=== PATIENT | female | born 1990 | race Hispanic/Latino ===

== ENCOUNTER 2020-12-17 05:29 | Inpatient (IN) | payer MEDICAID ==
[~2020-12-17] VITALS: Ht 167.6 cm; Wt 69.9 kg
[2020-12-17] MEDS ORDERED: LACTATED RINGERS 1000ML 1,000 ML IV ONE (05:55)
[2020-12-17] MEDS ORDERED: OXYTOCIN-LR 20 UNITS/1000 ML 1,000 ML IV ONE (06:09)
[2020-12-17] MEDS ORDERED: LIDOCAINE HCL 1% 20 ML VIAL ONE (06:10)
[2020-12-17] MEDS ORDERED: LACTATED RINGERS 1000ML 1,000 ML IV PRN (06:30)
[2020-12-17] MEDS ORDERED: OXYTOCIN-LR 20 UNITS/1000 ML 1,000 ML IV SCH ×2 (06:30→07:00)
[2020-12-17] MEDS ORDERED: MISOPROSTOL 200 MCG TABLET ONE (06:36)
[2020-12-17] MEDS ORDERED: METHYLERGONOVINE MALEATE 0.2 MG/1 ML ML ONE (06:36)
[2020-12-17 06:39] LABS: HEMATOCRIT 37.5 % (36-48); MEAN CORPUSCULAR HEMOGLOBIN 28.4 pg (27.0-33.0); MEAN CORPUSCULAR HGB CONC 33.1 g/dL (32.0-36.0); MEAN CORPUSCULAR VOLUME 85.8 fL (79-99); RED BLOOD CELL COUNT(AUTO) 4.37 MIL/uL (4.00-5.50); RED CELL DISTRIBUTION WIDTH 13.3 % (11.0-15.5); WHITE BLOOD COUNT (AUTO) 15.9 K/uL (4.8-10.8)
[2020-12-17] MEDS ORDERED: WITCH HAZEL 1 PAD TP PRN (07:00)
[2020-12-17] MEDS ORDERED: MISOPROSTOL 200 MCG TABLET PR SCH (07:00)
[2020-12-17] MEDS ORDERED: MEASLES/MUMPS/RUBELLA VACCINE, LIVE 0.5 ML/VIAL SQ PRN (07:00)
[2020-12-17] MEDS ORDERED: DIPH,PERTUSS(ACELL),TET VAC/PF 0.5 ML VIAL IM PRN (07:00)
[2020-12-17] MEDS ORDERED: METHYLERGONOVINE MALEATE 0.2 MG/1 ML ML IM SCH (07:00)
[2020-12-17] MEDS ORDERED: ACETAMINOPHEN WITH CODEINE 1 TAB TAB PO PRN (07:00)
[2020-12-17] MEDS ORDERED: LANOLIN 30GM OINTMENT TP PRN (07:00)
[2020-12-17] MEDS ORDERED: ACETAMINOPHEN 325 MG TAB PO PRN (07:00)
[2020-12-17] MEDS ORDERED: BENZOCAINE/LANOLIN/ALOE VERA 60 ML AEROSOL TP PRN (07:00)
[2020-12-17] MEDS: IBUPROFEN 600 MG TABLET PO PRN ×2 (08:15→18:55)
[2020-12-17 16:04] VITALS: BP 114/71
[2020-12-17 19:27] VITALS: BP 102/59
[2020-12-17] MEDS: DOCUSATE SODIUM 100 MG CAP PO SCH (21:49)
[2020-12-17 23:32] VITALS: BP 100/65
[2020-12-18 03:12] VITALS: BP 111/42
[2020-12-18 07:01] LABS: HEMATOCRIT 31.7 % (36-48); MEAN CORPUSCULAR HEMOGLOBIN 28.5 pg (27.0-33.0); MEAN CORPUSCULAR HGB CONC 32.2 g/dL (32.0-36.0); MEAN CORPUSCULAR VOLUME 88.5 fL (79-99); RED BLOOD CELL COUNT(AUTO) 3.58 MIL/uL (4.00-5.50); RED CELL DISTRIBUTION WIDTH 13.7 % (11.0-15.5); WHITE BLOOD COUNT (AUTO) 12.2 K/uL (4.8-10.8)
[2020-12-18 07:11] LABS: HEPATITIS Bs ANTIGEN SCREEN P Negative (Negative)
[2020-12-18 07:16] VITALS: BP 108/63
[2020-12-18] MEDS: DOCUSATE SODIUM 100 MG CAP PO SCH (09:03)
[2020-12-18] MEDS: IBUPROFEN 600 MG TABLET PO PRN (09:04)
[2020-12-18 11:02] VITALS: BP 95/43
== END 2020-12-18 13:00 | disposition home or self-care (01) | DRG 560 ==
LOC: EDH 05:29 → LDH 05:30 → OBSVTOIN 05:30 → WSH 08:45
PROVIDERS: ADMIT Obstetrics & Gynecology; ATTEND Obstetrics & Gynecology
PROC: 10E0XZZ Delivery of Products of Conception, External Approach (ICD-10-PCS; principal; 2020-12-17)
PROC: 0HQ9XZZ Repair Perineum Skin, External Approach (ICD-10-PCS; 2020-12-17)
PROC: 0UQMXZZ Repair Vulva, External Approach (ICD-10-PCS; 2020-12-17)
PROC: 3E0DXGC Introduction of Other Therapeutic Substance into Mouth and Pharynx, External Approach (ICD-10-PCS; 2020-12-17)
PROC: 3E0234Z Introduction of Serum, Toxoid and Vaccine into Muscle, Percutaneous Approach (ICD-10-PCS; 2020-12-17)
PROC: 3E0134Z Introduction of Serum, Toxoid and Vaccine into Subcutaneous Tissue, Percutaneous Approach (ICD-10-PCS; 2020-12-17)
DX: O99.214 Obesity complicating childbirth (principal); E66.01 Morbid (severe) obesity due to excess calories; O69.81X0 Labor and delivery complicated by cord around neck, without compression, not applicable or unspecified; Z37.0 Single live birth; Z3A.38 38 weeks gestation of pregnancy; O62.2 Other uterine inertia; O70.0 First degree perineal laceration during delivery; O71.82 Other specified trauma to perineum and vulva; Z23 Encounter for immunization
CPT/HCPCS: 36415; 85027; 86592; 86850; 86900; 86901; 87340; 90707; 90715; A4351; G0378; J2210; J2590; J7120

== ENCOUNTER 2024-12-10 07:23 | Emergency (ER) | payer SELFPAY ==
[~2024-12-10] VITALS: Ht 167.6 cm; Wt 136.1 kg
[2024-12-10 07:28] VITALS: TEMP 98.7
[2024-12-10] MEDS: LIDOCAINE 5% TOPICAL PATCH TP ONE (08:31)
--- NOTE | 2024-12-10 08:41 | NUR ---
PT IMMOBILIZER TO R KNEE WAS PLACED. +CMS POST APPLICATION.
[2024-12-10] MEDS ORDERED: NAPR-1196 PO (09:07)
[2024-12-10] MEDS ORDERED: CYCL10TA16 PO (09:07)
--- NOTE | 2024-12-10 09:07 | ERN ---
ED Note History of Present Illness Stated Complaint: NECK/ARM/BACK PAIN Chief Complaint: Upper Extremity Pain/Injury Time Seen by MD: 07:30 Dictation: 34-year-old female presenting to the emergency department with right-sided neck pain after strain, slept wrong and has been using her upper extremities more often says past few days worse to movement Allergies: Coded Allergies: No Known Drug Allergies (Unverified Allergy, Unknown, 12/26/16) Home Meds No Active Prescriptions or Reported Meds Past Medical History Past Medical History: No Pertinent History Surgical History: Other Surgical History Other: D&C : 2 Para: 1 Aborts: 0 Review of System Dictation Constitutional: Negative for fever,chills, and weight loss Eyes: Negative for injury, pain,redness, and discharge ENT: Negative for injury,pain or swelling Cardiovascular: Negative for chest pain, palpitations, and edema Respiratory: Negative for shortness of breath, cough, and wheezing, Abdomen/GI: Negative for abdominal pain, nausea, vomiting, diarrhea, and constipation Back: Negative for injury and pain : Negative for injury, bleeding and discharge MS/Extremity: Per HPI Skin: Negative for rash, and discoloration Neuro: Negative for headache, weakness, numbness, tingling, and seizure Psych: Negative for suicide ideation, homicidal ideation, and hallucinations Initial Vital Sign VS Vital Signs Date Time Temp Pulse Resp B/P (MAP) Pulse Ox O2 Delivery O2 Flow Rate FiO2 12/10/24 07:28 98.8 94 18 174/79 98 0 Physical Exam Dictation General: awake, alert, NAD Head/Face: Normocephalic, atraumatic Eyes: PERRL, EOMI, vision at baseline ENT: oral cavity clear, TMs clear, no signs of infection Neck: Trachea midline, supple, no nuchal rigidity Cardiovascular: RRR, normal S1/S2, No MRGs, no JVD Respiratory: CTAB, no respiratory distress, No rales or wheezes Abdomen: Soft, non-tender, non-distended, normal bowel sounds, no guarding or rebound. Skin: Warm, dry, normal turgor, no rash MS/Extremity: Pulses equal, no cyanosis, neurovascular intact, FROM, tenderness with the range of motion to neck area and back Neuro: COAx4, GCS 15, strength 5/5, CN 2-12 intact, normal cerebellar exam, normal gait, Psych: Normal behavior, mood, and affect normal ED Course ED Course Orders Procedure Category Date Status Time Ketorolac 60mg/2ml PHA 12/10/24 Complete (Toradol 60mg/2ml) 08:30 Lidocaine (Lidoderm PHA 12/10/24 Complete Patch 5%) 08:30 Ketorolac PHA 12/10/24 Complete Tromethamine 30mg/Ml 08:[address] Place Knee Imobilizer CPOE 12/10/24 Transmitted To: (Er) 08:40 Crutches W/Training CPOE 12/10/24 Transmitted (Er) 09:01 Current Medications Medications (Trade) Dose Ordered Sig/Awilda Route PRN Reason Start Time Stop Time Status Last Admin Dose Admin Ketorolac Tromethamine (toRADol 60MG/ 2ML) 30 mg ONCE ONCE IM 12/10/24 08:30 12/10/24 08:20 DC Ketorolac Tromethamine (toRADol) 30 mg ONCE ONCE IM 12/10/24 08:30 12/10/24 08:31 DC 12/10/24 08:29 Lidocaine (Lidoderm Patch 5%) 1 patch ONCE ONCE TP 12/10/24 08:30 12/10/24 08:31 DC 12/10/24 08:31 Vital Signs Date Time Temp Pulse Resp B/P (MAP) Pulse Ox O2 Delivery O2 Flow Rate FiO2 12/10/24 07:28 98.8 94 18 174/79 98 0 Medical Decision Making MDM MDM: Differential diagnosis: Rationale: Tests considered and ordered secondary to shared decision making incl ude: Previous outside records reviewed: Old ER visits. Risk of complication and/or morbidity or mortality of patient management: None Medications-Per medication reconciliation Need for hospitalization: Patient does not meet criteria for hospitalization. Need for emergency major/minor surgery: No There are no social concerns with this patient. Prescription drug management Prescriptions will include symptomatic care Patient's prior external medical records from other ER visits were reviewed by me as indicated. Prior testing and results from previous visits were reviewed. Prior tests were taken into account with medical decision making and resource utilization, independent historian/historians were used to obtain complete medical history. I independently interpreted the test that were performed, results were reviewed by me and considered findings on radiology if ordered. Medical management and examination interpretation discussions were had by me with other qualified healthcare professionals as indicated for the patient's care. 34-year-old female with muscle strains improving medication prescription given no chest pain or shortness of breath DX & DISP Disposition: Discharge Departure Impression: Primary Impression: Acute neck sprain Condition: Stable Scripts Cyclobenzaprine HCl (Flexeril) 10 Mg Tab 1 TAB PO BID for muscle spasms for 5 Days, #10 TAB 0 Refills Prov: LALITA GUDINO MD 12/10/24 Naproxen (Naproxen) 250 Mg Tablet 250 MG PO BID for 5 Days, #10 TAB Prov: LALITA GUDINO MD 12/10/24 Referrals: DEBORAH MANCIA MD (PCP) LALITA GUDINO MD Dec 10, 2024 09:07
[2024-12-10 09:26] VITALS: BP 141/85; PULSE 86; RESP 17; O2SAT 98
--- NOTE | 2024-12-10 09:28 | NUR ---
CRUTCH TRAINING COMPLETED: CARL GALVEZ APPLIED THE KNEE IMMOBILIZER AND INITIAL CRUTCH TRAINING. I REVEIWED EACH AND PT UNDERSTOOD BOTH. +CMS POST KNEE IMMOBILIZER APPLICATION. PT WAS ABLE TO AMBULATE W/CRUTCH THROUGH THE DISCHARGE REGISTRATION PROCESS
== END 2024-12-10 09:30 | disposition home or self-care (01) ==
LOC: EDH 07:23
DX: S13.4XXA Sprain of ligaments of cervical spine, initial encounter (principal); X58.XXXA Exposure to other specified factors, initial encounter; Y93.89 Activity, other specified; Y92.89 Other specified places as the place of occurrence of the external cause; Y99.8 Other external cause status
CPT/HCPCS: 99283; 29505; 96372; J1885